=== PATIENT | male | born 1985 | race Caucasian/White ===

== ENCOUNTER 2017-07-08 10:51 | Emergency (ER) | payer SELFPAY ==
[2017-07-08] MEDS ORDERED: Ketorolac 60 MG/2 ML SDV IM ONE (11:21)
--- NOTE | 2017-07-08 11:27 | EDM.PDOC ---
ED HPI GENERAL MEDICAL PROBLEM - General Chief Complaint: Back Pain or Injury Stated Complaint: MIDDLE BACK PAIN Time Seen by Provider: 07/08/17 11:00 Source of Information: Reports: Patient History Limitations: Reports: No Limitations - History of Present Illness INITIAL COMMENTS - FREE TEXT/NARRATIVE: HISTORY AND PHYSICAL: History of present illness: Patient is a 31-year-old male who presents to the emergency room today with complaints of right posterior thoracic back pain. He states 2 nights ago he fell from a ladder which was approximately 3-4 feet off the ground. He caught himself on the wrong but hit his right exterior back against the ladder. Denies hitting his head or any loss of consciousness. Pain is localized and does not radiate. After the fall he was able to continue with his day. Woke up this morning with pain to the right back, concerned he may have a fractured rib. Reports that he coughed and felt a "pop". He denies any urinary or bowel complaints or concerns. Patient is fully ambulatory without any numbness or tingling to his upper/lower extremities. Review of systems: As per history of present illness and below otherwise all systems reviewed and negative. Past medical history: As per history of present illness and as reviewed below otherwise noncontributory. Surgical history: As per history of present illness and as reviewed below otherwise noncontributory. Social history: No reported history of drug or alcohol abuse. Family history: As per history of present illness and as reviewed below otherwise noncontributory. Physical exam: General: Well-developed and well-nourished 31-year-old male. Alert and oriented. Nontoxic appearing and in no acute distress. HEENT: Atraumatic, normocephalic, pupils reactive, negative for conjunctival pallor or scleral icterus, mucous membranes moist, throat clear, neck supple, nontender, trachea midline. Lungs: Clear to auscultation, breath sounds equal bilaterally, chest nontender. Heart: S1S2, regular, negative for clicks, rubs, or JVD. Abdomen: Soft, nondistended, nontender. Negative for masses or hepatosplenomegaly. Negative for costovertebral tenderness. Pelvis: Stable nontender. Genitourinary: Deferred. Rectal: Deferred. C-spine/Back: No pinpoint vertebral tenderness upon palpation. No crepitus, step -offs or obvious deformities noted. Does have some tenderness to the right mid thoracic posterior spine, appears musculature in nature. No soft tissue swelling or redness noted to the painful area. Able to walk without difficulty, able to ambulate on tiptoes and heels and toes. No fecal or urinary incontinence. Extremities: Moves all extremiteis per self thought difficulty or deficits. negative for cords or calf pain. Neurovascular unremarkable. Neuro: Awake, alert, oriented. Cranial nerves II through XII unremarkable. Cerebellum unremarkable. Motor and sensory unremarkable throughout. Exam nonfocal. Diagnostics: Chest w/ rib x-rays Therapeutics: Toradol Impression: Rib fracture Plan: 1. You do have a rib fracture upon reviewing nor x-ray. 2 prescriptions have been given to you. Patton 5/325mg, which is a narcotic, may be used for evening and nighttime use. 1-2 tabs every 4-6 hours as needed. Diclofenac has been given to you for daytime use this as anti-inflammatory. Do not take any additional NSAIDs or ibuprofen. Rest, ice the area and follow-up with your primary care provider. 2. Please do not avoid coughing or deep breathing. Splinting as we discussed. 3. Follow-up with your primary care provider as we discussed. Return to the ED as needed and as discussed (Monitor for chest pain, fever, chills, difficulty breathing, etc..). Definitive disposition and diagnosis as appropriate pending reevaluation and review of above. Right Middle Back Pain Score (Numeric/FACES): 8 - Related Data Allergies Allergy/AdvReac Type Severity Reaction Status Date / Time No Known Allergies Allergy Verified 07/08/17 11:21 Home Meds: Home Meds . [No Known Home Meds] 07/08/17 [History] ED ROS GENERAL - Review of Systems Review Of Systems: ROS reveals no pertinent complaints other than HPI. ED EXAM, UPPER BACK/NECK PAIN - Physical Exam Exam: See Below (See dictation) Course - Vital Signs Last Recorded V/S: Last Vital Signs Temp 98.2 F 07/08/17 11:15 Pulse 91 07/08/17 11:15 Resp 18 07/08/17 11:15 BP 145/91 H 07/08/17 11:15 Pulse Ox 96 07/08/17 11:15 - Orders/Labs/Meds Orders: Active Orders 24 hr Category Date Time Status Ribs 2V w Chest Rt [CR] Stat Exams 07/08/17 11:21 Taken Meds: Medications Discontinued Medications Generic Name Dose Route Start Last Admin Trade Name Suzette PRN Reason Stop Dose Admin Ketorolac Tromethamine 60 mg 07/08/17 11:21 07/08/17 11:27 Toradol IM 07/08/17 11:22 60 mg ONETIME ONE Administration Departure - Departure Time of Disposition: 12:52 Disposition: Home, Self-Care 01 Clinical Impression: Rib fracture Qualifiers: Encounter type: initial encounter Rib fracture type: single rib Fracture type: closed Laterality: right Qualified Code(s): S22.31XA - Fracture of one rib, right side, initial encounter for closed fracture - Discharge Information Referrals: PCP,None [Primary Care Provider] - Forms: ED Department Discharge Additional Instructions: My general discharge The following information is given to patients seen in the emergency department who are being discharged to home. This information is to outline your options for follow-up care. We provide all patients seen in our emergency department with a follow-up referral. The need for follow-up, as well as the timing and circumstances, are variable depending upon the specifics of your emergency department visit. If you don't have a primary care physician on staff, we will provide you with a referral. We always advise you to contact your personal physician following an emergency department visit to inform them of the circumstance of the visit and for follow-up with them and/or the need for any referrals to a consulting specialist. The emergency department will also refer you to a specialist when appropriate. This referral assures that you have the opportunity for follow-up care with a specialist. All of these measure are taken in an effort to provide you with optimal care, which includes your follow-up. Under all circumstances we always encourage you to contact your private physician who remains a resource for coordinating your care. When calling for follow-up care, please make the office aware that this follow-up is from your recent emergency room visit. If for any reason you are refused follow-up, please contact the [facility] Emergency Department at and asked to speak to the emergency department charge nurse. [facility] [address] [place] [id number] 1. You do have a rib fracture upon reviewing nor x-ray. 2 prescriptions have been given to you. Patton 5/325mg, which is a narcotic, may be used for evening and nighttime use. 1-2 tabs every 4-6 hours as needed. Diclofenac has been given to you for daytime use this as anti-inflammatory. Do not take any additional NSAIDs or ibuprofen. Rest, ice the area and follow-up with your primary care provider. 2. Please do not avoid coughing or deep breathing. Splinting as we discussed. 3. Follow-up with your primary care provider as we discussed. Return to the ED as needed and as discussed (Monitor for chest pain, fever, chills, difficulty breathing, etc..). - My Orders Last 24 Hours: My Active Orders 07/08/17 11:21 Ribs 2V w Chest Rt [CR] Stat - Assessment/Plan Last 24 Hours: My Active Orders 07/08/17 11:21 Ribs 2V w Chest Rt [CR] Stat
--- NOTE | 2017-07-08 13:19 | CR ---
EXAMINATION: PA chest and right ribs. HISTORY: Pain. FINDINGS: The trachea is midline. The cardiomediastinal silhouette is within normal limits. No pulmonary infilt rates, effusions or pneumothorax. Osseous structures appear unremarkable. No displaced rib fracture. IMPRESSION: No acute cardiopulmonary process.
== END 2017-07-08 13:04 | disposition home or self-care (01) ==
LOC: MW.ED 10:51
DX: S22.31XA Fracture of one rib, right side, initial encounter for closed fracture (principal); W11.XXXA Fall on and from ladder, initial encounter
CPT/HCPCS: 71101; 96372; 99283; J1885; 99284